=== PATIENT | female | born 1970 ===

== ENCOUNTER 2018-01-28 09:25 | Outpatient (CLI) | payer OTHER ==
--- NOTE | 2018-01-28 15:27 | XRay Report ---
XRAY BILATERAL KNEE THREE VIEWS EACH: 01/28/18 09:25:00 CLINICAL: Bilateral knee pain. FINDINGS: Right: Osteoarthritis with narrowing of the medial joint space and small osteophytes. Slight widening of the lateral joint space. Small patellofemoral osteophytes and a quadriceps insertion enthesophyte. No fracture or dislocation. No joint effusion. Normal soft tissues. Left: Osteoarthritis with narrowing of the medial joint space and small osteophytes. Slight widening of the lateral joint space. Normal patellofemoral joint. No joint effusion. No fracture or dislocation. Normal soft tissues. IMPRESSION: Bilateral osteoarthritis involving the medial joint spaces in the right patellofemoral joint. Right quadriceps enthesopathy.
== END 2018-01-28 09:26 | disposition home or self-care (01) ==
LOC: SPVIMAG 09:25
PROVIDERS: ATTEND Orthopaedic Surgery
DX: M17.0 Bilateral primary osteoarthritis of knee (principal); M76.891 Other specified enthesopathies of right lower limb, excluding foot